=== PATIENT | male | born 1965 | race Caucasian/White ===

== ENCOUNTER 2018-09-20 15:09 | Emergency (ER) | payer OTHER ==
[2018-09-20 15:19] VITALS: TEMP 98.6; BMI 39.1
--- NOTE | 2018-09-20 15:35 | PDOC ---
History of Present Illness - General Chief Complaint: Pain, Acute Stated Complaint: ABD PAIN Time Seen by Provider: 09/20/18 15:34 - History of Present Illness Initial Comments: 09/20/18 15:52 The patient is a 52 year old male with a history of HTN, HLD, DM who presents for evaluation of abdominal pain. The patient reports a 1 day history of RLQ intermittent sharp abdominal pain. He states that he continued to experience the pain today prompting his presentation to the ED for further evaluation. The patient denies any associated symptoms and otherwise denies fevers, chills, SOB, chest pain, nausea, vomiting, testicular pain, or changes with urination or bowel movements. Past History - Past Medical History Allergies/Adverse Reactions: Allergies Allergy/AdvReac Type Severity Reaction Status Date / Time No Known Allergies Allergy Verified 07/13/15 14:52 Home Medications: Ambulatory Orders Atorvastatin Ca [Lipitor] 40 mg PO HS #0 tablet 07/15/15 Losartan Potassium [Cozaar] 100 mg PO DAILY #1 07/15/15 Sitagliptin Phosphate [Januvia -] 100 mg PO DAILY@0700 #0 tablet 07/15/15 Amlodipine Besylate [Norvasc -] 10 mg PO DAILY 09/20/18 Aspirin [ASA -] 81 mg PO DAILY 09/20/18 Glyburide/Metformin HCl [Glyburide-Metformin 5-500 mg] 1 each PO BID 09/20/18 Insulin Degludec [Tresiba] 20 unit SQ DAILY 09/20/18 Multivitamin [Multiple Vitamins] 1 each PO DAILY 09/20/18 [place]-3 Fatty Acids/Fish Oil [Fish Oil 1,000 mg Capsule] 1 each PO DAILY Semaglutide [Ozempic] 0.25 mg SQ WEEKLY 09/20/18 COPD: No Diabetes: Yes (TYPE 2) HTN: Yes Kidney Stones: Yes - Immunization History Immunization Up to Date: No - Suicide/Smoking/Psychosocial Hx Smoking History: Never smoked Have you smoked in the past 12 months: No Information on smoking cessation initiated: No Hx Alcohol Use: No Drug/Substance Use Hx: No Substance Use Type: None Hx Substance Use Treatment: No Review of Systems - Review of Systems Comments:: 09/20/18 15:54 Constitutional: No fevers, chills, fatigue, malaise HEENT: No Rhinorrhea, nasal congestion, visual changes Cardiovascular: No chest pain, syncope, palpitations, lightheadedness Respiratory: No Cough, SOB, Hemoptysis, Gastrointestinal: RLQ abdominal pain. No Nausea, Vomiting, Constipation, Diarrhea, Melena Genitourinary: No Dysuria, Frequency, Urgency, Hesitancy, Hematuria, Flank pain Musculoskeletal: No Myalgia, arthralgia Skin: No rashes, itching, bruising, pallor Neurologic: No Headache, Dizziness, Numbness, Weakness, or Tingling Psychiatric: No Hallucinations. No SI or HI *Physical Exam - Vital Signs Last Vital Signs Temp Pulse Resp BP Pulse Ox 98.6 F 81 16 171/81 H 96 09/20/18 15:12 09/20/18 15:12 09/20/18 15:12 09/20/18 15:12 09/20/18 15:12 - Physical Exam Comments: 09/20/18 15:55 General Appearance: Nourished. No Apparent Distress HEENT: No Pharyngeal Erythema, Tonsillar Exudate, Tonsillar Erythema Neck: No Cervical Lymphadenopathy Respiratory/Chest: Lungs Clear, Normal Breath Sounds. No Crackles, Rales, Rhonchi, Wheezing Cardiovascular: Regular Rhythm, Regular Rate. No Murmur, Gallops, Rubs Gastrointestinal/Abdominal: Normal Bowel Sounds, Soft. Mild RLQ discomfort with palpation. Large 5cm x6cm umbilical hernia on exam. No Guarding, Rebound, Genital Exam: Normal External Exam. No testicular tenderness. No Hernia. Cremaster reflex present. Musculoskeletal: No CVA Tenderness Extremity: Normal Capillary Refill Integumentary: Normal Color, Dry, Warm Neurologic: Fully Oriented, Alert, Normal Mood/Affect, Normal Response, ED Treatment Course - LABORATORY CBC & Chemistry Diagram: 09/20/18 15:43 09/20/18 15:43 Medical Decision Making - Medical Decision Making 09/20/18 15:57 The patient is a 52 year old male with a history of HTN, HLD, DM who presents for evaluation of abdominal pain. Differential includes but is not limited to: Appendicitis, Gastritis, Pancreatitis, UTI, Infectious, Metabolic Derangement. Given the patient's history and physical exam, we will obtain a cbc, cmp, lipase , ua, CT abdomen/pelvis to evaluate further. We will treat with iv fluids and tylenol and continue to monitor and reassess while here in the ED. 09/20/18 18:45 CBC, cmp, lipase, UA are unremarkable. CT abdomen/pelvis does not demonstrate any acute process as preliminarily read by our professional housing consultant radiologist. We are comfortable discharging the patient home in stable condition. Patient and family made aware of impression and plan, return precautions discussed including but not limited to worsening pain or symptoms, fevers, or signs of infection, chest pain, respiratory distress, inability to tolerate oral intake, dehydration, syncope, or neurologic changes. The patient is to follow up with PMD as recommended within 1 week, follow up information provided and the patient will call for an appointment. The patient is to take medications as instructed for duration of time and continue with supportive care, avoid triggers and precipitants. Patient is safe for outpatient follow-up. *DC/Admit/Observation/Transfer Diagnosis at time of Disposition: Abdominal pain Qualifiers: Abdominal location: unspecified location Qualified Code(s): R10.9 - Unspecified abdominal pain - Discharge Dispostion Disposition: HOME Condition at time of disposition: Stable - Referrals Referrals: Triston Guzman MD [Primary Care Provider] - - Patient Instructions Printed Discharge Instructions: DI for Abdominal Pain-Adult Additional Instructions: 1) Please follow-up with your primary care doctor in the next 2-3 days. Please call tomorrow to schedule a follow up appointment. If you cannot follow up with your doctor within 1 week please return to the Emergency Department for any urgent issues. 2) You were given a copy of the tests performed today. Please bring the results with you and review them with your primary care doctor. Your laboratory / imaging results were normal here in the ER. 3) If you have any worsening of symptoms or any other concerns please return to the ER immediately. Return if worsening symptoms including fevers, headache, vomiting, visual or hearing disturbances, abdominal pain, chest pain, shortness of breath, syncope, dehydration, inability to take things by mouth/vomiting, altered mental status, or worsening concerning symptoms. 4) Please continue taking your home medications as directed. Side effects may include upset stomach, abdominal pain, vomiting, or diarrhea. Do not drink alcohol with your medications. - Post Discharge Activity
[2018-09-20] MEDS ORDERED: ACETAMINOPHEN 1000 MG/100 ML VIAL (NON FORMULARY) IVPB ONE (15:39)
[2018-09-20] MEDS ORDERED: SODIUM CHLORIDE 1,000 ML IV STA (15:39)
[2018-09-20] MEDS ORDERED: ACETAMINOPHEN INJECTION 100 ML IVPB ONE (15:45)
--- NOTE | 2018-09-20 16:09 | PDOC ---
Attending Attestation - Resident Resident Name: Davi Loo - ED Attending Attestation I have performed the following: I have examined & evaluated the patient, The case was reviewed & discussed with the resident, I agree w/resident's findings & plan - HPI HPI: 09/20/18 16:07 52 YOM with HTN, HLD, DM2 Presenting with RLQ pain, intermittent, sharp since last night. No f/c, bowel or bladder changes, vomiting, diarrhea. +umbilical hernia x many years, no complications No abdominal surgeries. No meds for pain. no trauma. no testicular or groin pain/bulge or exertional components. 09/20/18 16:07 - Physicial Exam PE: 09/20/18 16:08 Agree with the resident's HPI and PE as documented in the electronic medical record. NAD, well appearing, EOMI, PERRL, MMM, nl conjunctiva, anicteric; neck supple. lungs clear, RRR, abdomen soft nontender, +umbilical hernia, reducible, soft, no overlying skin discoloration. exam unremarkable, no palp hernia in groin. no CVAT. Back nontender. [place]AR[place] x4, no focal neuro deficits. No peripheral edema. normal color for ethnicity, WWP. - Medical Decision Making 09/20/18 16:08 Vital Signs Temp Pulse Resp BP Pulse Ox 98.6 F 81 16 171/81 H 96 09/20/18 15:12 09/20/18 15:12 09/20/18 15:12 09/20/18 15:12 09/20/18 15:12 See HPI for details. Prior notes reviewed, including admissions, discharges and consultations. DDx abdominal pain: Renal colic, biliary colic, metabolic/electrolyte derangements. GERD, PUD, esophageal spasm, pancreatitis, hepatitis, constipation , colitis, gastroenteritis, cholecystitis, UTI, pyelonephritis, ileus, SBO, medication side effect, hernia, appendicitis, diverticulitis, mesenteric ischemia. msk strain, mesenteric adenitis, psoas abscess. Vital signs reviewed, wnl. no fever laboratory results and imaging reviewed, basic labs and lytes wnl LFTs/lipase_normal UA_neg for infection or blood ED course -interventions: tylenol, IVF reassess feels improved, ambulatory, no peritoneal findings and no systemic findings. CT a/p to r/o appy. results neg for appy, +umbilical hernia, uncomplicated and no e/o obstruction, abdominal pathology incidental renal cyst made aware of results. Pt to be discharged in stable condition. Patient made aware of clinical impression, treatment recommendations and disposition plan, return precautions discussed (including but not limited to new or persistent/worsening symptoms, pain, fevers, or signs of infection, chest pain, respiratory distress, inability to tolerate oral intake, dehydration, syncope, or neurologic changes) . Follow up with PMD as recommended, follow up information provided, take medications as instructed for duration of time. continue with supportive care, avoid triggers and precipitants. All questions answered to patient's satisfaction and expressed understanding and comfort with this. At the time of discharge, the patient is alert, clinically improved, tolerating po and verbalizes understanding of instructions, satisfied with the care received and felt comfortable with the plan. Patient does not suffer from an acute life- threatening medical condition at this time and is safe for outpatient follow- up. 09/20/18 17:16 09/20/18 18:48 09/20/18 18:51
[2018-09-20 16:19] LABS: BASO % 0.3 % (0-2.0); EOS % 0.8 % (0-4.5); HEMATOCRIT 43.5 % (35.4-49); HEMOGLOBIN 14.5 GM/dL (11.7-16.9); LYMPH % 15.6 % (8-40); MCH 29.8 pg (25.7-33.7); MCHC 33.4 g/dl (32.0-35.9); MEAN CELL VOLUME 89.2 fl (80-96); MEAN PLT VOLUME 8.1 fl (7.5-11.1); MONO % 7.9 % (3.8-10.2); NEUT % 75.4 % (42.8-82.8); PLATELET COUNT 231 K/MM3 (134-434); RBC 4.88 M/mm3 (4.00-5.60); RDW 13.8 % (11.9-15.9); WHITE BLOOD COUNT 6.7 K/mm3 (4.0-10.0)
[2018-09-20 16:28] LABS: ALBUMIN 4.1 g/dl (3.4-5.0); BILIRUBIN,TOTAL 0.4 mg/dL (0.2-1); BLOOD UREA NITROGEN 11.8 mg/dL (7-18); CALCIUM 9.4 mg/dL (8.5-10.1); POTASSIUM 4.2 mmol/L (3.5-5.1); TOT PROT 7.7 g/dl (6.4-8.2)
[2018-09-20 16:42] LABS: PH,URINE 5.5 (5.0-8.0); URINE APPEARANCE CLEAR; URINE BILIRUBIN NEGATIVE (NEGATIVE); URINE COLOR YELLOW; URINE GLUCOSE (UA) NEGATIVE (NEGATIVE); URINE KETONE NEGATIVE (NEGATIVE); URINE LEUK ESTERASE NEGATIVE (NEGATIVE); URINE NITRITE NEGATIVE (NEGATIVE); URINE PROTEIN NEGATIVE (NEGATIVE); URINE UROBILINOGEN 0.2 mg/dL (0.2-1.0)
[2018-09-20 18:51] VITALS: BP 150/82; PULSE 68
== END 2018-09-20 18:51 | disposition home or self-care (01) ==
LOC: JER 15:09
PROC: 3E0337Z Introduction of Electrolytic and Water Balance Substance into Peripheral Vein, Percutaneous Approach (ICD-10-PCS; principal; 2018-09-20)
PROC: 3E033NZ Introduction of Analgesics, Hypnotics, Sedatives into Peripheral Vein, Percutaneous Approach (ICD-10-PCS; 2018-09-20)
DX: R10.31 Right lower quadrant pain (principal); K42.9 Umbilical hernia without obstruction or gangrene; I10 Essential (primary) hypertension; E78.5 Hyperlipidemia, unspecified; E11.9 Type 2 diabetes mellitus without complications; Z79.4 Long term (current) use of insulin; Z87.442 Personal history of urinary calculi
CPT/HCPCS: 36415; 74177-TC; 80053; 81003; 83690; 85025; 96361; 96374; 99283-25; J0131; J7030